=== PATIENT | female | born 1990 | race American Indian/Alaskan Native ===

== ENCOUNTER 2019-06-29 18:43 | Emergency (ER) | payer SELFPAY ==
[2019-06-29] MEDS ORDERED: Ondansetron 4 MG/2 ML SDV IVPUSH ONE (20:11)
[2019-06-29] MEDS ORDERED: fentaNYL 100 MCG/2 ML SDV IVPUSH ONE (20:11)
[2019-06-29] MEDS ORDERED: Iopamidol 612 MG/ML 100 ML Bottle IVPUSH ONE (20:52)
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
[2019-06-29 21:08] LABS: CHLORIDE,CL 103 mmol/L (98-107); SODIUM,NA 141 mmol/L (136-145)
[2019-06-29] MEDS ORDERED: Sodium Chloride 0.9% 1,000 ML IV ONE (22:58)
[2019-06-29] MEDS ORDERED: Ampicillin/Sulbactam Na 3 GM in Sodium Chloride 0.9% 100 ML IV ONE (23:15)
[2019-06-29] MEDS ORDERED: Dexamethasone 4 MG/ML SDV IVPUSH ONE (23:15)
[2019-06-29 23:38] VITALS: BP 122/48; PULSE 97
== END 2019-06-30 00:10 ==
LOC: DL.ED 18:43
DX: S02.31XA Fracture of orbital floor, right side, initial encounter for closed fracture (principal); S32.029A Unspecified fracture of second lumbar vertebra, initial encounter for closed fracture; S32.039A Unspecified fracture of third lumbar vertebra, initial encounter for closed fracture; S32.049A Unspecified fracture of fourth lumbar vertebra, initial encounter for closed fracture; S12.400A Unspecified displaced fracture of fifth cervical vertebra, initial encounter for closed fracture; S10.93XA Contusion of unspecified part of neck, initial encounter; S00.83XA Contusion of other part of head, initial encounter; Y04.0XXA Assault by unarmed brawl or fight, initial encounter
CPT/HCPCS: 36415; 70450; 70486; 71260; 72125; 72128; 72131; 74177; 80053; 81001; 84703; 85025; 96374; 96375; 99284; 99285-25; J0295; J1100; J2405; J3010; J7030; J7050; Q9967

== ENCOUNTER 2019-09-30 20:16 | Emergency (ER) | payer SELFPAY | END 2019-09-30 21:39 | disposition left against medical advice (07) | LOC: DL.ED 20:16 | DX: Z53.21 Procedure and treatment not carried out due to patient leaving prior to being seen by health care provider (principal) ==

== ENCOUNTER 2019-11-01 06:33 | Emergency (ER) | payer MEDICAID ==
[2019-11-01 06:39] VITALS: BP 94/67; PULSE 72
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
[2019-11-01] MEDS ORDERED: Ketorolac 30 MG/ML SDV IVPUSH ONE (07:19)
[2019-11-01] MEDS ORDERED: Ondansetron 4 MG/2 ML SDV IV ONE (07:19)
[2019-11-01] MEDS ORDERED: Sodium Chloride 0.9% 1,000 ML IV ONE (07:19)
[2019-11-01 07:30] LABS: ANION GAP 12.8 mEq/L (7-13); CHLORIDE,CL 106 mmol/L (98-107); SODIUM,NA 139 mmol/L (136-145)
== END 2019-11-01 08:44 | disposition home or self-care (01) ==
LOC: DL.ED 06:33
DX: K80.70 Calculus of gallbladder and bile duct without cholecystitis without obstruction (principal); E66.8 Other obesity
CPT/HCPCS: 36415; 80053; 80305-QW; 81001; 81025; 82150; 83690; 83735; 85025; 87086; 96361; 96374; 96375; 99284-25; J1885; J2405; J7030

== ENCOUNTER 2019-11-04 11:00 | Day surgery (SDC) | payer MEDICAID ==
[2019-11-04] MEDS ORDERED: Ondansetron 4 MG/2 ML SDV IV ONE (11:01)
[2019-11-04] MEDS ORDERED: Rocuronium 100 MG/10 ML MDV IV ONE (11:01)
[2019-11-04] MEDS ORDERED: fentaNYL 100 MCG/2 ML SDV IV ONE (11:01)
[2019-11-04] MEDS ORDERED: Propofol 200 MG/20 ML SDV IV ONE (11:01)
[2019-11-04] MEDS ORDERED: Neostigmine Methylsulfate 10 MG/10 ML MDV IV ONE (11:01)
[2019-11-04] MEDS ORDERED: Glycopyrrolate 0.2 MG/ML 2 ML SDV IV ONE (11:01)
[2019-11-04] MEDS ORDERED: HYDROmorphone 0.5 MG/0.5 ML Syringe IV ONE (11:01)
[2019-11-04] MEDS ORDERED: Dexamethasone 4 MG/ML SDV IV ONE (11:01)
[2019-11-04] MEDS ORDERED: Ketorolac 30 MG/ML SDV IVPUSH ONE (11:01)
[2019-11-04] MEDS ORDERED: Lactated Ringers 1,000 ML IV ONE (11:01)
[2019-11-04] MEDS ORDERED: Succinylcholine 200 MG/10 ML MDV IV ONE (11:01)
[2019-11-04] MEDS ORDERED: ceFAZolin 2 GM in Premix Bag 1 BAG IV ONE (11:30)
--- NOTE | 2019-11-04 12:03 | CN ---
SERVICE DATE: 11/04/2019 INTRODUCTION: This 29-year-old female had presented to the emergency room last week with right upper quadrant abdominal pain. She has a history of known stones and had been putting off a recommended cholecystectomy. However, last week, she could not endure the abdominal pain and presented to the emergency room. She was treated and sent home with instructions to present to the Surgery Clinic on 11/04/2019 n.p.o. and would consider cholecystectomy at that time. ALLERGIES: The patient has allergies to latex, otherwise, no medication allergies. PRIOR SURGERIES: Include section x2. FAMILY HISTORY AND SOCIAL HISTORY: The patient is single. She lives at home. She has 3 children. She does not smoke. REVIEW OF SYSTEMS: Negative for all systems. PHYSICAL EXAMINATION: HEENT: Normal. Chest: Lungs are clear bilaterally. Heart: Normal sinus rhythm. Abdomen: Mildly obese. Tender in the right upper quadrant. No evidence of hernias or abdominal scars. Extremities: Have no edema and good range of motion. Neurologic: Grossly intact. ASSESSMENT: 1. Chronic cholecystitis. 2. Cholelithiasis. PLAN: I discussed the risks, benefits, and expected outcomes of a laparoscopic cholecystectomy with this patient. We will proceed with surgery today. [facility] /[id number]
[2019-11-04] MEDS ORDERED: Lactated Ringers 1,000 ML IV SCH (12:30)
[2019-11-04] MEDS ORDERED: Ondansetron 4 MG/2 ML SDV IVPUSH PRN (14:57)
[2019-11-04] MEDS ORDERED: Sodium Chloride 0.9% 10 ML Syringe FLUSH PRN (15:00)
[2019-11-04] MEDS: Acetaminophen/oxyCODONE 325-5 MG Tab PO PRN ×2 (15:55→19:50)
[2019-11-04] MEDS: Morphine 2 MG/ML SYRINGE IVPUSH PRN ×4 (16:11→22:56)
--- NOTE | 2019-11-04 21:32 | OR ---
DATE: 11/04/2019 PREOPERATIVE DIAGNOSES: Chronic cholecystitis, cholelithiasis. POSTOPERATIVE DIAGNOSES: Chronic cholecystitis, cholelithiasis. PROCEDURE: Laparoscopic cholecystectomy. ANESTHESIA: General. ESTIMATED BLOOD LOSS: Minimal. SPECIMENS: Gallbladder and stones. OPERATIVE FINDINGS: Multiple small stones and gallbladder sludge and multiple adhesions of the omentum around the gallbladder. No other abnormalities noted. INDICATION FOR PROCEDURE: This 29-year-old female has chronic cholecystitis and ultrasound proven stones. DESCRIPTION OF PROCEDURE: After adequate preparation, an infraumbilical incision was made, and a Veress needle placed intra-abdominally for insufflation. This was then exchanged for a 5 mm trocar and laparoscope. Examination of the abdomen was normal. Three other trocars were placed under direct vision. The gallbladder did have multiple adhesions of the omentum around it that needed to be taken down by sharp and cautery dissection. The gallbladder was identified and there seemed to be normal thickness of the wall, soft, pliable, and noninfected. It was, however, markedly distended. The cystic triangle structures were dissected free, triply clipped, and divided. The gallbladder was then taken off the liver bed using blunt, sharp, and cautery dissection. Hemostasis of the liver bed was controlled by cautery. The right upper quadrant was irrigated with saline and suctioned clear. The gallbladder was then removed through the epigastric trocar site. The abdomen desufflated and the skin closed with Vicryl. The gallbladder was opened on the back table and showed multiple small stones and gritty, sean sludge within the gallbladder. [facility] /[id number]
[2019-11-05] MEDS: Acetaminophen/oxyCODONE 325-5 MG Tab PO PRN ×3 (01:26→09:47)
[2019-11-05 07:57] VITALS: BP 109/57; PULSE 53
--- NOTE | 2019-11-05 09:12 | PCM.SN.2 ---
- Free Text/Narrative Note: Stable POD#1. Pain controlled. PO liquid tolerated. Wounds clean and dry. Flatus positive. Can discharge today. Instructions given. Percocet #10 given for pain. FU my clinic week of Dec 08 if needed. No restrictions on diet or activity.
== END 2019-11-05 11:55 | disposition home or self-care (01) ==
LOC: DL.SDS 11:00 → DL.MS 12:05 → DL.SDS 11-05 11:55
PROVIDERS: ATTEND Surgery
DX: K80.10 Calculus of gallbladder with chronic cholecystitis without obstruction (principal); Z11.59 Encounter for screening for other viral diseases; Z91.040 Latex allergy status
CPT/HCPCS: 00790; 47562; 81025; 99203; A9270-GY; J0330; J0690; J1100; J1170; J1885; J2270; J2405; J2704; J2710; J3010; J3490; J7120; U0002

== ENCOUNTER 2020-04-11 03:27 | Emergency (ER) | payer MEDICAID ==
--- NOTE | 2020-04-11 03:42 | EDM.PDOC ---
ED HPI GENERAL MEDICAL PROBLEM - General Chief Complaint: Lower Extremity Injury/Pain Stated Complaint: FELL, LEG PAIN Time Seen by Provider: 04/11/20 03:42 Source of Information: Reports: Patient, RN History Limitations: Reports: No Limitations, Intoxication - History of Present Illness INITIAL COMMENTS - FREE TEXT/NARRATIVE: ED per w/c with c/o pain to left knee. States dancing and fell on top partner, Unsure what happened to knee, Feels like going to give out when tries to stand, Admits ETOH tonight, 4 mixed drinks. Denied other drug use. Vomiting on arrival. Denies hitting head. Left Knee Pain Score (Numeric/FACES): 6 - Related Data Allergies Allergy/AdvReac Type Severity Reaction Status Date / Time latex Allergy Rash Verified 04/11/20 03:45 Home Meds: Home Meds Vancomycin [Vancocin 125 MG Capsule] 125 mg PO QID 11/01/19 [History] Hydrocodone/Acetaminophen [Hydrocodone-Acetamin 5-325 mg] 1 tab PO Q6HR PRN 11/04/19 [History] Ondansetron [Zofran] 4 mg PO DAILY PRN 11/04/19 [History] Past Medical History - Past Health History Medical/Surgical History: Denies Medical/Surgical History HEENT History: Reports: Impaired Vision Other HEENT History: Glasses Cardiovascular History: Reports: None Respiratory History: Reports: None Gastrointestinal History: Reports: Cholelithiasis Genitourinary History: Reports: UTI, Recurrent 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 FRACTURED BACK AND RIGHT SIDE OF FACE Neurological History: Reports: Other (See Below) Other Neuro History: headaches Psychiatric History: Reports: None Endocrine/Metabolic History: Reports: Obesity/BMI 30+ Hematologic History: Reports: Other (See Below) Other Hematologic History: low antithrombin Immunologic History: Reports: None Oncologic (Cancer) History: Reports: None Dermatologic History: Reports: None - Infectious Disease History Infectious Disease History: Reports: C-Difficile, Chicken Pox - Past Surgical History Head Surgeries/Procedures: Reports: None HEENT Surgical History: Reports: None GI Surgical History: Reports: None Endocrine Surgical History: Reports: None Neurological Surgical History: Reports: None Musculoskeletal Surgical History: Reports: None Dermatological Surgical History: Reports: None Social & Family History - Family History Family Medical History: No Pertinent Family History - Caffeine Use Caffeine Use: Reports: Soda - Living Situation & Occupation Living situation: Reports: with Family Review of Systems - Review of Systems Review Of Systems: Comprehensive ROS is negative, except as noted in HPI. ED EXAM, GENERAL - Physical Exam Exam: See Below Exam Limited By: No Limitations General Appearance: Alert, Anxious, Moderate Distress Eye Exam: Bilateral Eye: EOMI Ears: Hearing Grossly Normal Nose: Normal Inspection Throat/Mouth: Normal Inspection Head: Atraumatic, Normocephalic Neck: Normal Inspection Respiratory/Chest: No Respiratory Distress, Lungs Clear, Normal Breath Sounds Cardiovascular: Regular Rate, Rhythm Extremities: Leg Pain (left lateral knee tender with palpation, pain with minimal movment. No deformity. minimal lateral swelling. no bruising), Limited Range of Motion Psychiatric: Anxious Skin Exam: Warm, Dry, Intact, Normal Color. No: Ecchymosis Course - Vital Signs Last Recorded V/S: Last Vital Signs Temp 96.8 F L 04/11/20 03:39 Pulse 89 04/11/20 03:39 Resp 19 04/11/20 03:39 BP 115/61 04/11/20 03:39 Pulse Ox 100 04/11/20 03:39 - Orders/Labs/Meds Labs: Laboratory Tests 04/11/20 04/11/20 Range/Units 03:54 03:54 WBC 8.4 (5.0-10.0) 10^3/uL RBC 5.21 (4.2-5.4) 10^6/uL Hgb 13.9 (12.0-16.0) g/dL Hct 42.5 (37.0-47.0) % MCV 81.6 (80-100) fL MCH 26.7 L (27.0-34.0) pg MCHC 32.7 L (33.0-35.0) g/dL Plt Count 341 (150-450) 10^3/uL Neut % (Auto) 74.6 (42.2-75.2) % Lymph % (Auto) 19.7 L (20.5-50.1) % Coryell % (Auto) 5.3 (2-8) % Eos % (Auto) 0.2 L (1.0-3.0) % Baso % (Auto) 0.2 (0.0-1.0) % Sodium 138 (136-145) mmol/L Potassium 3.8 (3.5-5.1) mmol/L Chloride 102 (98-107) mmol/L Carbon Dioxide 22 (21-32) mmol/L Anion Gap 17.8 H (7-13) mEq/L BUN 7 (7-18) mg/dL Creatinine 0.79 (0.55-1.02) mg/dL Est Cr Clr Drug Dosing 92.37 mL/min Estimated GFR (MDRD) > 60 BUN/Creatinine Ratio 8.9 (No establ ref range) Glucose 97 (74-99) mg/dL Calcium 8.7 (8.5-10.1) mg/dL Total Bilirubin 0.2 (0.2-1.0) mg/dL AST 11 L (15-37) U/L ALT 22 (14-59) U/L Alkaline Phosphatase 83 (46-116) U/L Total Protein 7.9 (6.4-8.2) g/dL Albumin 4.0 (3.4-5.0) g/dL Globulin 3.9 Albumin/Globulin Ratio 1.0 Ethyl Alcohol 199 (0) mg/dL Meds: Medications Discontinued Medications Generic Name Dose Route Start Last Admin Trade Name Freq PRN Reason Stop Dose Admin Ondansetron HCl 4 mg 04/11/20 04:12 04/11/20 04:17 Zofran IVPUSH 04/11/20 04:13 4 mg ONETIME ONE Administration Departure - Departure Time of Disposition: 04:36 Disposition: Home, Self-Care 01 Condition: Good Clinical Impression: Intoxication Knee pain, left Qualifiers: Chronicity: acute Qualified Code(s): M25.562 - Pain in left knee - Discharge Information *PRESCRIPTION DRUG MONITORING PROGRAM REVIEWED*: No *COPY OF PRESCRIPTION DRUG MONITORING REPORT IN PATIENT LARA: No Instructions: Acute Knee Pain, Adult, Knee Sprain, Adult, [id number] Referrals: Thi Castañeda MD [Primary Care Provider] - Forms: ED Department Discharge Additional Instructions: knee immobilizer weight bearing as tolerated with immobilizer crutches if knee continues to feel unstable clinic recheck on Mark tylenol or ibuprofen alternating every 4 hours as needed for discomfort ice to knee decrease alcohol ingestion at least until injury heals Sepsis Event Note (ED) - Focused Exam Vital Signs: Vital Signs Temp Pulse Resp BP Pulse Ox 04/11/20 03:39 96.8 F L 89 19 115/61 100
[2020-04-11 03:45] VITALS: BP 115/61; PULSE 89
[2020-04-11] MEDS ORDERED: Ondansetron 4 MG/2 ML SDV IVPUSH ONE (04:12)
[2020-04-11 04:25] LABS: ANION GAP 17.8 mEq/L (7-13); CHLORIDE,CL 102 mmol/L (98-107); SODIUM,NA 138 mmol/L (136-145)
--- NOTE | 2020-04-11 04:25 | CR ---
PROCEDURE INFORMATION: Exam: XR Left Tibia and Fibula Exam date and time: 04/11/2020 3:58 AM Age: 29 years old Clinical indication: Other: Etoh--no anlke pain; Additional info: Fell dancing pain TECHNIQUE: Imaging protocol: XR Left tibia and fibula. Views: 2 views. COMPARISON: No relevant prior studies available. FINDINGS: Limitations: Distal tibia and fibula are not included on the study at the level of the ankle. Bones/joints: Normal. Soft tissues: Normal. IMPRESSION: No acute findings. Distal tibia and fibula excluded from the study.
== END 2020-04-11 04:58 | disposition home or self-care (01) ==
LOC: DL.ED 03:27
DX: M25.562 Pain in left knee (principal); Z91.040 Latex allergy status; E66.9 Obesity, unspecified; Z68.39 Body mass index [BMI] 39.0-39.9, adult
CPT/HCPCS: 36415; 73590; 80053; 80307; 85025; 96374; 99284; J2405; 99283

== ENCOUNTER 2021-03-05 19:41 | Emergency (ER) | payer MEDICAID ==
[2021-03-05] MEDS ORDERED: Ondansetron 4 MG Tab.DIS PO ONE (19:42)
[2021-03-05 19:51] VITALS: BP 123/72; PULSE 84
[2021-03-05 20:14] LABS: AMPHETAMINES,URINE NEGATIVE (NEGATIVE); BARBITURATES,URINE NEGATIVE (NEGATIVE); BENZODIAZEPINE,URINE NEGATIVE (NEGATIVE); MDMA (ECSTASY), URINE NEGATIVE (NEGATIVE); METHADONE,URINE NEGATIVE (NEGATIVE); METHAMPHETAMINES,URINE NEGATIVE (NEGATIVE); OPIATES,URINE NEGATIVE (NEGATIVE); OXYCODONE,URINE NEGATIVE (NEGATIVE); PHENCYCLIDINE,URINE NEGATIVE (NEGATIVE); TCA,URINE NEGATIVE (NEGATIVE)
[2021-03-05 20:31] LABS: ANION GAP 13.5 mEq/L (7-13); CHLORIDE,CL 105 mmol/L (98-107); SODIUM,NA 142 mmol/L (136-145)
[2021-03-05] MEDS ORDERED: Iopamidol 612 MG/ML 100 ML Bottle IVPUSH ONE (20:34)
[2021-03-05] MEDS ORDERED: Azithromycin 250 MG Tab PO ONE (20:34)
[2021-03-05] MEDS ORDERED: Sodium Chloride 0.9% 1,000 ML IV ONE (20:34)
[2021-03-05] MEDS ORDERED: cefTRIAXone 1 GM in Sodium Chloride 0.9% 50 ML IV ONE (20:34)
[2021-03-05] MEDS ORDERED: Metoclopramide 10 MG/2 ML SDV IVPUSH ONE (20:41)
[2021-03-05] MEDS ORDERED: fentaNYL 100 MCG/2 ML SDV IVPUSH ONE (20:44)
[2021-03-05] MEDS ORDERED: metroNIDAZOLE 250 MG Tab PO ONE (20:44)
--- NOTE | 2021-03-05 21:37 | EDM.PDOC ---
ED HPI GENERAL MEDICAL PROBLEM - General Chief Complaint: Abdominal Pain Stated Complaint: STOMACH PAIN Time Seen by Provider: 03/05/21 19:45 Source of Information: Reports: Patient History Limitations: Reports: No Limitations - History of Present Illness INITIAL COMMENTS - FREE TEXT/NARRATIVE: ED with multiple complaints, Pain below right ribs, sharp crampy type started after bending over at work then spread to general abdomen. Reports normal BM's slight nausea no vomiting or diarrhea. Watery light yellow vaginal discharge, burning with urination. Does not believe much risk for STD. IUD in place, placed in 2017. Right Upper Abdomen Pain Score (Numeric/FACES): 7 - Related Data Allergies Allergy/AdvReac Type Severity Reaction Status Date / Time latex Allergy Rash Verified 04/11/20 03:45 Home Meds: Home Meds Vancomycin [Vancocin 125 MG Capsule] 125 mg PO QID 11/01/19 [History] Hydrocodone/Acetaminophen [Hydrocodone-Acetamin 5-325 mg] 1 tab PO Q6HR PRN 11/04/19 [History] Ondansetron [Zofran] 4 mg PO DAILY PRN 11/04/19 [History] Past Medical History - Past Health History Medical/Surgical History: Denies Medical/Surgical History HEENT History: Reports: Impaired Vision Other HEENT History: Glasses Cardiovascular History: Reports: None Respiratory History: Reports: None Gastrointestinal History: Reports: Cholelithiasis Genitourinary History: Reports: UTI, Recurrent 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 FRACTURED BACK AND RIGHT SIDE OF FACE Neurological History: Reports: Other (See Below) Other Neuro History: headaches Psychiatric History: Reports: None Endocrine/Metabolic History: Reports: Obesity/BMI 30+ Hematologic History: Reports: Other (See Below) Other Hematologic History: low antithrombin Immunologic History: Reports: None Oncologic (Cancer) History: Reports: None Dermatologic History: Reports: None - Infectious Disease History Infectious Disease History: Reports: C-Difficile, Chicken Pox - Past Surgical History Head Surgeries/Procedures: Reports: None HEENT Surgical History: Reports: None GI Surgical History: Reports: None Endocrine Surgical History: Reports: None Neurological Surgical History: Reports: None Musculoskeletal Surgical History: Reports: None Dermatological Surgical History: Reports: None Social & Family History - Family History Family Medical History: No Pertinent Family History - Tobacco Use Tobacco Use Status *Q: Former Tobacco User Used Tobacco, but Quit: Yes Month/Year Tobacco Last Used: mar 2020 Second Hand Smoke Exposure: No - Caffeine Use Caffeine Use: Reports: Soda - Recreational Drug Use Recreational Drug Use: No - Living Situation & Occupation Living situation: Reports: with Family ED ROS GENERAL - Review of Systems Review Of Systems: Comprehensive ROS is negative, except as noted in HPI. ED EXAM, GI/ABD - Physical Exam Exam: See Below Exam Limited By: No Limitations General Appearance: Alert, Moderate Distress Eyes: Bilateral: EOMI Ears: Normal External Exam, Hearing Grossly Normal Nose: Normal Inspection Throat/Mouth: Normal Inspection, Normal Lips, Normal Teeth, No Airway Compromise Head: Atraumatic, Normocephalic Neck: Normal Inspection Respiratory/Chest: No Respiratory Distress, Lungs Clear, Normal Breath Sounds Cardiovascular: Normal Peripheral Pulses, Regular Rate, Rhythm GI/Abdominal Exam: Tender (general greater immedialtely below ribs right later.), Abnormal Bowel Sounds (hyperactive). No: Distended, Guarding (Female) Exam: Adnexal Tenderness (bilateral), Cervix Motion Tenderness, Vaginal Discharge (white, thin milky,) Extremities: Normal Inspection, Normal Range of Motion Neurological: Alert, Oriented, Normal Cognition Psychiatric: Normal Affect, Normal Mood Skin Exam: Warm, Dry, Intact, Normal Color Course - Vital Signs Last Recorded V/S: Last Vital Signs Temp 99.2 F 03/05/21 19:45 Pulse 84 03/05/21 19:45 Resp 18 03/05/21 19:45 BP 123/72 03/05/21 19:45 Pulse Ox 97 03/05/21 19:45 - Orders/Labs/Meds Orders: Active Orders 24 hr Category Date Time Status CHLAMYDIA AND GONORRHEA BY [facility] Urgent Lab 03/05/21 19:57 Received Labs: Laboratory Tests 03/05/21 03/05/21 03/05/21 Range/Units 19:57 19:57 19:57 WBC (5.0-10.0) 10^3/uL RBC (4.2-5.4) 10^6/uL Hgb (12.0-16.0) g/dL Hct (37.0-47.0) % MCV (80-100) fL MCH (27.0-34.0) pg MCHC (33.0-35.0) g/dL Plt Count (150-450) 10^3/uL Neut % (Auto) (42.2-75.2) % Lymph % (Auto) (20.5-50.1) % Gooding % (Auto) (2-8) % Eos % (Auto) (1.0-3.0) % Baso % (Auto) (0.0-1.0) % Sodium (136-145) mmol/L Potassium (3.5-5.1) mmol/L Chloride (98-107) mmol/L Carbon Dioxide (21-32) mmol/L Anion Gap (7-13) mEq/L BUN (7-18) mg/dL Creatinine (0.55-1.02) mg/dL Est Cr Clr Drug Dosing mL/min Estimated GFR (MDRD) BUN/Creatinine Ratio (No establ ref range) Glucose (70-99) mg/dL Lactic Acid (0.4-2.0) mmol/L Calcium (8.5-10.1) mg/dL Total Bilirubin (0.2-1.0) mg/dL AST (15-37) U/L ALT (14-59) U/L Alkaline Phosphatase (46-116) U/L Total Protein (6.4-8.2) g/dL Albumin (3.4-5.0) g/dL Globulin Albumin/Globulin Ratio Amylase (25-115) U/L Lipase (73-393) U/L Urine Color Yellow (YELLOW) Urine Appearance Clear (CLEAR) Urine pH 6.5 (5.0-9.0) Ur Specific Holcomb 1.010 (1.005-1.030) Urine Protein Negative (NEGATIVE) Urine Glucose (UA) Negative (NEGATIVE) Urine Ketones Negative (NEGATIVE) Urine Occult Blood Negative (NEGATIVE) Urine Nitrite Negative (NEGATIVE) Urine Bilirubin Negative (NEGATIVE) Urine Urobilinogen 0.2 (0.2-1.0) mg/dL Ur Leukocyte Esterase Negative (NEGATIVE) Urine HCG, Qual Negative Urine Opiates Screen Negative (NEGATIVE) Ur Oxycodone Screen Negative (NEGATIVE) Urine Methadone Screen Negative (NEGATIVE) Ur Barbiturates Screen Negative (NEGATIVE) U Tricyclic Antidepress Negative (NEGATIVE) Ur Phencyclidine Scrn Negative (NEGATIVE) Ur Amphetamine Screen Negative (NEGATIVE) U Methamphetamines Scrn Negative (NEGATIVE) Urine MDMA Screen Negative (NEGATIVE) U Benzodiazepines Scrn Negative (NEGATIVE) Urine Cocaine Screen Negative (NEGATIVE) U Marijuana (THC) Screen Negative (NEGATIVE) 03/05/21 03/05/21 03/05/21 Range/Units 20:05 20:05 20:05 WBC 8.0 (5.0-10.0) 10^3/uL RBC 4.59 (4.2-5.4) 10^6/uL Hgb 13.1 (12.0-16.0) g/dL Hct 39.7 (37.0-47.0) % MCV 86.5 D (80-100) fL MCH 28.5 (27.0-34.0) pg MCHC 33.0 (33.0-35.0) g/dL Plt Count 291 (150-450) 10^3/uL Neut % (Auto) 59.4 (42.2-75.2) % Lymph % (Auto) 29.9 (20.5-50.1) % Gooding % (Auto) 8.6 H (2-8) % Eos % (Auto) 2.0 (1.0-3.0) % Baso % (Auto) 0.1 (0.0-1.0) % Sodium 142 (136-145) mmol/L Potassium 3.5 (3.5-5.1) mmol/L Chloride 105 (98-107) mmol/L Carbon Dioxide 27 (21-32) mmol/L Anion Gap 13.5 H (7-13) mEq/L BUN 11 (7-18) mg/dL Creatinine 0.74 (0.55-1.02) mg/dL Est Cr Clr Drug Dosing 101.85 mL/min Estimated GFR (MDRD) > 60 BUN/Creatinine Ratio 14.9 (No establ ref range) Glucose 85 (70-99) mg/dL Lactic Acid 0.7 (0.4-2.0) mmol/L Calcium 8.4 L (8.5-10.1) mg/dL Total Bilirubin 0.2 (0.2-1.0) mg/dL AST 24 (15-37) U/L ALT 43 (14-59) U/L Alkaline Phosphatase 67 (46-116) U/L Total Protein 6.8 (6.4-8.2) g/dL Albumin 3.5 (3.4-5.0) g/dL Globulin 3.3 Albumin/Globulin Ratio 1.1 Amylase 42 (25-115) U/L Lipase 108 (73-393) U/L Urine Color (YELLOW) Urine Appearance (CLEAR) Urine pH (5.0-9.0) Ur Specific Holcomb (1.005-1.030) Urine Protein (NEGATIVE) Urine Glucose (UA) (NEGATIVE) Urine Ketones (NEGATIVE) Urine Occult Blood (NEGATIVE) Urine Nitrite (NEGATIVE) Urine Bilirubin (NEGATIVE) Urine Urobilinogen (0.2-1.0) mg/dL Ur Leukocyte Esterase (NEGATIVE) Urine HCG, Qual Urine Opiates Screen (NEGATIVE) Ur Oxycodone Screen (NEGATIVE) Urine Methadone Screen (NEGATIVE) Ur Barbiturates Screen (NEGATIVE) U Tricyclic Antidepress (NEGATIVE) Ur Phencyclidine Scrn (NEGATIVE) Ur Amphetamine Screen (NEGATIVE) U Methamphetamines Scrn (NEGATIVE) Urine MDMA Screen (NEGATIVE) U Benzodiazepines Scrn (NEGATIVE) Urine Cocaine Screen (NEGATIVE) U Marijuana (THC) Screen (NEGATIVE) Meds: Medications Discontinued Medications Generic Name Dose Route Start Last Admin Trade Name Johnq PRN Reason Stop Dose Admin Azithromycin 1,000 mg 03/05/21 20:34 03/05/21 21:20 Azithromycin 250 Mg Tab PO 03/05/21 20:35 1,000 mg ONETIME ONE Administration Fentanyl 50 mcg 03/05/21 20:44 03/05/21 21:25 Fentanyl 100 Mcg/2 Ml Sdv IVPUSH 03/05/21 20:45 50 mcg ONETIME ONE Administration Protocol Sodium Chloride 1,000 mls @ 999 mls/hr 03/05/21 20:34 03/05/21 21:12 Normal Saline IV 03/05/21 21:34 999 mls/hr .BOLUS ONE Administration Ceftriaxone Sodium 1 gm/ 50 mls @ 100 mls/hr 03/05/21 20:34 03/05/21 21:47 Sodium Chloride IV 03/05/21 21:03 100 mls/hr ONETIME ONE Administration Iopamidol 100 ml 03/05/21 20:34 03/05/21 21:46 Iopamidol 612 Mg/Ml 100 Ml Bottle IVPUSH 03/05/21 20:35 100 ml ONETIME ONE Administration Metoclopramide HCl 10 mg 03/05/21 20:41 03/05/21 21:22 Metoclopramide 10 Mg/2 Ml Sdv IVPUSH 03/05/21 20:42 10 mg ONETIME ONE Administration Metronidazole 500 mg 03/05/21 20:44 03/05/21 21:20 Metronidazole 250 Mg Tab PO 03/05/21 20:45 500 mg ONETIME ONE Administration Ondansetron HCl Confirm 03/06/21 00:06 Ondansetron 4 Mg Tab.Dis Administered 03/06/21 00:07 Dose 8 mg .ROUTE .STK-MED ONE Departure - Departure Time of Disposition: 23:46 Disposition: Home, Self-Care 01 Condition: Good Clinical Impression: Abdominal pain Qualifiers: Abdominal location: generalized Qualified Code(s): R10.84 - Generalized abdominal pain Vaginitis Qualifiers: Chronicity: acute Qualified Code(s): N76.0 - Acute vaginitis - Discharge Information *PRESCRIPTION DRUG MONITORING PROGRAM REVIEWED*: No *COPY OF PRESCRIPTION DRUG MONITORING REPORT IN PATIENT LARA: No Instructions: Abdominal Pain, Adult, Bacterial Vaginosis, [id number], Abdominal Pain, Adult, [id number] Referrals: Ricardo Diaz MD [Primary Care Provider] - Forms: ED Department Discharge Additional Instructions: light diet advance as tolerated increase fluids, fruit and fiber in diet alternate tylenol 500mg and ibuprofen 600mg every 4 hours as needed for discomfort doxycycline 100mg twice daily for 10 days flagyl 500mg twice daily for 10 days zofran 4mg ODT on evry 6 hours as needed for nausea follow up if symptoms worsen, increased pain vomiting, fever. Sepsis Event Note (ED) - Focused Exam Vital Signs: Vital Signs Temp Pulse Resp BP Pulse Ox 03/05/21 19:45 99.2 F 84 18 123/72 97 - My Orders Last 24 Hours: My Active Orders 03/05/21 19:57 CHLAMYDIA AND GONORRHEA BY [facility] Urgent - Assessment/Plan Last 24 Hours: My Active Orders 03/05/21 19:57 CHLAMYDIA AND GONORRHEA BY [facility] Urgent
--- NOTE | 2021-03-05 23:00 | CT ---
PROCEDURE INFORMATION: Exam: CT Abdomen And Pelvis With Contrast Exam date and time: 03/05/2021 9:34 PM Age: 30 years old Clinical indication: Other: Abdominal pain, TECHNIQUE: Imaging protocol: Computed tomography of the abdomen and pelvis with contrast. Radiation optimization: All CT scans at this facility use at least one of these dose optimization techniques: automated exposure control; mA and/or kV adjustment per patient size (includes targeted exams where dose is matched to clinical indication); or iterative reconstruction. Contrast material: ISOVUE 300; Contrast volume: 100 ml; Contrast route: INTRAVENOUS (IV); COMPARISON: CT Lumbar Spine wo Cont 06/29/2019 8:55 PM FINDINGS: Lungs: The visualized lung bases are unremarkable. No pleural effusion. Liver: The liver is normal. Gallbladder and bile ducts: The gallbladder is surgically absent. Unremarkable post cholecystectomy biliary tree. Pancreas: The pancreas is within normal limits. Spleen: The spleen is normal. An accessory splenule is present. Adrenal glands: The adrenal glands are normal. Kidneys and ureters: The kidneys are normal. Stomach and bowel: The stomach is within normal limits. No evidence of bowel obstruction or of intestinal perforation. Appendix: No evidence of appendicitis. Intraperitoneal space: No pneumoperitoneum. No abnormal free fluid or fluid collection. Vasculature: Unremarkable. No abdominal aortic aneurysm. Lymph nodes: Multiple enlarged mesenteric lymph nodes, primarily on the left (for example axial images 37-48). No other enlarged lymph nodes. Urinary bladder: The urinary bladder is within normal limits. Reproductive: IUD in place. Otherwise unremarkable CT appearance of the uterus. No evidence of adnexal mass. Bones/joints: No acute fracture or dislocation. Soft tissues: The extra-abdominal soft tissues are unremarkable. IMPRESSION: 1. Mildly enlarged mesenteric lymph nodes, a nonspecific finding of uncertain clinical significance. 2. Otherwise unremarkable exam.
[2021-03-06] MEDS ORDERED: Ondansetron 4 MG Tab.DIS ONE (00:06)
[2021-03-09 11:47] LABS: C.TRACHOMATIS BY TMA Negative (Negative); N.GONORRHOEAE BY TMA Negative (Negative)
== END 2021-03-06 00:15 | disposition home or self-care (01) ==
LOC: DL.ED 19:41
DX: N76.0 Acute vaginitis (principal); E66.9 Obesity, unspecified; Z68.36 Body mass index [BMI] 36.0-36.9, adult; Z91.040 Latex allergy status; Z87.891 Personal history of nicotine dependence
CPT/HCPCS: 36415; 74177; 80053; 80305; 81003; 81025; 82150; 83605; 83690; 85025; 87210; 87491; 87591; 96365; 96375; 99284; A9270; J0696; J2765; J3010; J7030; Q9967

== ENCOUNTER 2021-04-13 06:57 | Day surgery (SDC) | payer MEDICAID ==
[~2021-04-13 06:57] MED LIST: Dextrose 5%-0.45% NaCl 1,000 ML IV SCH; Midazolam 1 MG/ML 2 ML SDV ONE; Sodium Chloride 0.9% 10 ML Syringe FLUSH PRN; fentaNYL 100 MCG/2 ML SDV ONE
[2021-04-13] MEDS ORDERED: fentaNYL 100 MCG/2 ML SDV IV ONE ×3 (06:58→08:07)
[2021-04-13] MEDS ORDERED: Midazolam 1 MG/ML 2 ML SDV IV ONE ×3 (06:58→08:09)
[2021-04-13 10:26] VITALS: BP 116/73; PULSE 62
== END 2021-04-13 10:00 | disposition home or self-care (01) ==
LOC: DL.ENDO 06:57
PROVIDERS: ATTEND Internal Medicine Gastroenterology
DX: K29.50 Unspecified chronic gastritis without bleeding (principal); D72.820 Lymphocytosis (symptomatic); E66.09 Other obesity due to excess calories; Z90.49 Acquired absence of other specified parts of digestive tract; Z01.812 Encounter for preprocedural laboratory examination; Z20.822 Contact with and (suspected) exposure to COVID-19; Z68.35 Body mass index [BMI] 35.0-35.9, adult
CPT/HCPCS: 43239; 87077; 87635; J2250; J3010; J7042; U0002

== ENCOUNTER 2021-05-24 14:52 | Emergency (ER) | payer MEDICAID ==
[2021-05-24 15:15] VITALS: BP 131/66; PULSE 70
[2021-05-24] MEDS: Sodium Chloride 0.9% 1,000 ML IV ONE (15:50)
[2021-05-24] MEDS: Ondansetron 4 MG/2 ML SDV IV ONE (15:51)
[2021-05-24] MEDS: Sodium Chloride 0.9% 10 ML Syringe FLUSH PRN (15:51)
[2021-05-24] MEDS: HYDROmorphone 1 MG/ML Syringe IVPUSH ONE (15:51)
[2021-05-24 17:12] LABS: ANION GAP 14.9 mEq/L (7-13); CHLORIDE,CL 102 mmol/L (98-107); SODIUM,NA 138 mmol/L (136-145)
[2021-05-24] MEDS: Ketorolac 30 MG/ML SDV IVPUSH ONE (17:12)
[2021-05-24] MEDS: Iopamidol 612 MG/ML 100 ML Bottle IVPUSH ONE (17:37)
[2021-05-24] MEDS: Dicyclomine 10 MG Cap PO ONE (18:13)
== END 2021-05-24 18:20 | disposition home or self-care (01) ==
LOC: DL.ED 14:52
DX: K52.9 Noninfective gastroenteritis and colitis, unspecified (principal); E66.9 Obesity, unspecified; Z68.35 Body mass index [BMI] 35.0-35.9, adult; Z91.040 Latex allergy status
CPT/HCPCS: 36415; 74177; 80053; 81001; 81025; 82150; 83605; 83690; 85025; 87086; 96374; 96375; 99284; A9270; J1170; J1885; J2405; J7030; Q9967